=== PATIENT | female | born 1985 | race Caucasian/White ===

== ENCOUNTER → 2025-01-17 | Outpatient (CLI) | payer BC, SELFPAY ==
--- NOTE | 2025-01-17 | XR_ITS ---
Examination: Left foot 2 views TECHNIQUE: AP lateral left foot 2 views Date and time: January 17, 2025 1151 hours INDICATIONS: Left foot pain 2 weeks. FINDINGS: Mild osteopenia. No fracture or dislocation No cortical bone destruction 2 mm plantar bony calcaneal spur IMPRESSION: 2 mm plantar bony calcaneal spur
== END | disposition home or self-care (01) ==
LOC: CDIM 11:00
PROVIDERS: PCP Nurse Practitioner Family; Referring Provider Nurse Practitioner Family; Visit Provider Nurse Practitioner Family
DX: M77.32 Calcaneal spur, left foot (principal)
CPT/HCPCS: 73620